=== PATIENT | female | born 1985 | race African-American/Black ===

== ENCOUNTER 2017-05-25 13:16 | Emergency (ER) | payer OTHER ==
[~2017-05-25] VITALS: Ht 180.3 cm; Wt 175.1 kg
[~2017-05-25 13:16] MED LIST: ALKA-SELTZER P1 EAC8 PO; APAP500; FLEXERIL PO; NOHOMEMEDICATIONS; NORCO 5-325 TA1 EACH PO; NYQUIL D COLD295 ML; ONDANSETRON HCL4 M2 PO; PHENERGAN50 MG RC; TUSSIONEX PENN473 ML PO; VENTOLIN HFA 1818 GM INH; ZOFRAN ODT4 MG PO; ZPAK PO
[2017-05-25] MEDS ORDERED: HYDROCODON-ACE1 EAC7 PO (14:12)
[2017-05-25] MEDS ORDERED: PERCOCET PO (14:13)
[2017-05-25] MEDS ORDERED: ALEVE220 M1 PO (14:13)
[2017-05-25 14:19] LABS: ABSOLUTE NEUTROPHILS 7.7 thou/uL (1.4-8.2); BASOPHILS 0.3 % (0.0-2.0); EOSINOPHILS 1.8 % (0.0-3.0); HEMATOCRIT 36.5 % (37.0-47.0); HEMOGLOBIN 11.9 gm/dL (12.0-15.0); MANUAL DIFF NO; MCH 27.5 pg (26.0-34.0); MCHC 32.7 g/dL (28.0-37.0); MCV 84.1 fL (80.0-100.0); MONOCYTES 5.7 % (1.0-8.0); PLATELET COUNT 337 thou/uL (150-400); POLYS 71.2 % (36.0-66.0); RBC 4.33 mil/uL (4.20-5.00); RDW 15.9 % (10.5-14.5); WBC 10.8 thou/uL (4.0-11.0)
[2017-05-25 14:22] LABS: CALCIUM 8.9 mg/dL (8.5-10.1); CREATININE 0.7 mg/dL (0.6-1.0); POTASSIUM 3.8 mmol/L (3.5-5.1)
[2017-05-25 14:28] LABS: ALBUMIN 3.3 g/dL (3.4-5.0); TOTAL BILIRUBIN 0.4 mg/dL (<0.1-1.0); TOTAL PROTEIN 7.6 g/dL (6.4-8.2)
[2017-05-25 16:01] LABS: URINE BILIRUBIN NEGATIVE (Negative); URINE BLOOD 3+ (Negative); URINE COLOR YELLOW; URINE GLUCOSE-RANDOM* NEGATIVE (Negative); URINE KETONES NEGATIVE (Negative); URINE LEUKOCYTES-REFLEX NEGATIVE (Negative); URINE PROTEIN (DIPSTICK) NEGATIVE (Negative); URINE SPECIFIC GRAVITY >= 1.030 (1.003-1.035); URINE UROBILINOGEN 0.2 E.U./dl (0.2-1.0)
[2017-05-25 16:15] LABS: SQUAMOUS 0-3 Few /LPF (0-3)
[2017-05-25 16:16] LABS: CASTS None Seen /LPF (None Seen); CRYSTALS None Seen /LPF (None Seen); URINE WBC-REFLEX 0-5 Rare /HPF (0-5)
[2017-05-25] MEDS ORDERED: ZOFRAN ODT4 M1 PO (16:23)
[2017-05-25 16:57] VITALS: BP 122/68
== END 2017-05-25 16:58 | disposition home or self-care (01) ==
LOC: ER 13:16
PROVIDERS: Physician Assistant
DX: O03.9 Complete or unspecified spontaneous abortion without complication (principal); F17.210 Nicotine dependence, cigarettes, uncomplicated; F10.99 Alcohol use, unspecified with unspecified alcohol-induced disorder; Z87.19 Personal history of other diseases of the digestive system; Z98.890 Other specified postprocedural states; Z88.1 Allergy status to other antibiotic agents; Z88.6 Allergy status to analgesic agent

== ENCOUNTER 2017-10-07 20:12 | Emergency (ER) | payer OTHER ==
[~2017-10-07] VITALS: Ht 180.3 cm; Wt 172.8 kg
[~2017-10-07 20:12] MED LIST changes: +ALEVE220 M1 PO; +HYDROCODON-ACE1 EAC7 PO; +PERCOCET PO; +ZOFRAN ODT4 M1 PO
[2017-10-07] MEDS ORDERED: TYLENOL325 MG PO (20:23)
[2017-10-07] MEDS ORDERED: ALEVE220 MG PO (20:24)
[2017-10-07 21:19] LABS: ABSOLUTE NEUTROPHILS 6.2 thou/uL (1.4-8.2); BASOPHILS 0.4 % (0.0-2.0); EOSINOPHILS 3.1 % (0.0-3.0); HEMATOCRIT 36.8 % (37.0-47.0); HEMOGLOBIN 12.2 gm/dL (12.0-15.0); LYMPHOCYTES 21.4 % (24.0-44.0); MCH 28.1 pg (26.0-34.0); MCHC 33.1 g/dL (28.0-37.0); MCV 84.8 fL (80.0-100.0); MONOCYTES 6.3 % (1.0-8.0); PLATELET COUNT 287 thou/uL (150-400); POLYS 68.8 % (36.0-66.0); RBC 4.34 mil/uL (4.20-5.00); RDW 15.5 % (10.5-14.5); WBC 9.1 thou/uL (4.0-11.0)
[2017-10-07 21:33] LABS: CALCIUM 8.6 mg/dL (8.5-10.1); POTASSIUM 3.6 mmol/L (3.5-5.1)
[2017-10-07 21:38] LABS: ALBUMIN 3.1 g/dL (3.4-5.0); TOTAL BILIRUBIN 0.2 mg/dL (<0.1-1.0); TOTAL PROTEIN 7.4 g/dL (6.4-8.2)
[2017-10-07] MEDS ORDERED: TRAMADOL 50 MG50 MG PO (22:43)
[2017-10-07] MEDS ORDERED: NORFLEX100 MG PO (22:43)
[2017-10-07 22:45] VITALS: BP 157/91
== END 2017-10-07 22:55 | disposition home or self-care (01) ==
LOC: ER 20:12
PROVIDERS: Nurse Practitioner Family
DX: M43.6 Torticollis (principal); J06.9 Acute upper respiratory infection, unspecified; Z88.1 Allergy status to other antibiotic agents; Z88.6 Allergy status to analgesic agent

== ENCOUNTER 2017-11-02 09:11 | Emergency (ER) | payer OTHER ==
[~2017-11-02] VITALS: Ht 180.3 cm; Wt 172.8 kg
[~2017-11-02 09:11] MED LIST changes: +ALEVE220 MG PO; +NORFLEX100 MG PO; +TRAMADOL 50 MG50 MG PO; +TYLENOL325 MG PO
[2017-11-02 09:23] VITALS: BP 153/103
[2017-11-02] MEDS ORDERED: HYDROCODONE-AP1 EAC6 PO (09:31)
[2017-11-02] MEDS ORDERED: FLEXERIL PO (09:31)
== END 2017-11-02 10:38 | disposition home or self-care (01) ==
LOC: ER 09:11
DX: M43.6 Torticollis (principal); M54.2 Cervicalgia; F17.210 Nicotine dependence, cigarettes, uncomplicated; Z88.1 Allergy status to other antibiotic agents; Z88.6 Allergy status to analgesic agent

== ENCOUNTER 2018-04-29 00:42 | Emergency (ER) | payer OTHER ==
[~2018-04-29] VITALS: Ht 180.3 cm; Wt 190.5 kg
[~2018-04-29 00:42] MED LIST changes: +HYDROCODONE-AP1 EAC6 PO
[2018-04-29] MEDS ORDERED: NAPROSYN500 MG PO (02:22)
[2018-04-29] MEDS ORDERED: CLEOCIN HCL150 MG PO (02:22)
[2018-04-29] MEDS ORDERED: ZYRTEC10 M5 PO (08:14)
[2018-04-29] MEDS ORDERED: ZOFRAN ODT4 MG PO (08:30)
== END 2018-04-29 02:45 | disposition home or self-care (01) ==
LOC: ER 00:42
DX: K02.9 Dental caries, unspecified (principal); F17.210 Nicotine dependence, cigarettes, uncomplicated; Z88.1 Allergy status to other antibiotic agents; Z88.6 Allergy status to analgesic agent; Z98.890 Other specified postprocedural states

== ENCOUNTER 2018-04-29 07:35 | Emergency (ER) | payer OTHER ==
[~2018-04-29] VITALS: Ht 180.3 cm; Wt 188.7 kg
[~2018-04-29 07:35] MED LIST changes: +CLEOCIN HCL150 MG PO; +NAPROSYN500 MG PO
[2018-04-29] MEDS ORDERED: ZYRTEC10 M5 PO (08:14)
[2018-04-29] MEDS ORDERED: ZOFRAN ODT4 MG PO (08:30)
== END 2018-04-29 08:59 | disposition home or self-care (01) ==
LOC: ER 07:35
DX: K02.9 Dental caries, unspecified (principal); T36.0X5A Adverse effect of penicillins, initial encounter; F17.210 Nicotine dependence, cigarettes, uncomplicated; Z98.890 Other specified postprocedural states; Z88.1 Allergy status to other antibiotic agents; Z88.6 Allergy status to analgesic agent; Y92.89 Other specified places as the place of occurrence of the external cause

== ENCOUNTER 2018-06-07 00:09 | Emergency (ER) | payer OTHER ==
[~2018-06-07] VITALS: Ht 180.3 cm; Wt 190.5 kg
--- NOTE | ~2018-06-07 | EKG ---
[place] [address] [facility] [place] [address] ELECTROCARDIOGRAM REPORT Name: MARCELA ESTRELLA Room #: DEP Jordana#: [id number] Admission: 06/07/18 Attend Phys: Discharge: 06/07/18 Date of : 89 Report #: [id number] THIS REPORT FOR: //name// [facility] ED Test Date: 2018-06-07 Test Time: 01:20:22 Pat Name: MARCELA ESTRELLA Department: Room: Gender: F Communication Clerk: rashad : 1985 Requested By: Escobar Don Order Number: [id number] MD: Kurt Snyder Measurements Intervals [place] Rate: 85 P: 50 VT: 146 QRS: 19 QRSD: 83 T: 19 QT: 365 QTc: 434 Interpretive Statements Sinus rhythm Baseline wander in lead(s) II,III,aVF No previous ECG available for comparison Electronically Signed On 06-07-2018 8:20:09 COPY LATHE TENDER by Kurt Snyder [email or web address] <ELECTRONICALLY SIGNED> By: Kurt Snyder MD 06/07/18 0820 0120 0120 Kurt Snyder MD /BENITO
[~2018-06-07 00:09] MED LIST changes: +ZYRTEC10 M5 PO
[2018-06-07 00:51] LABS: URINE BILIRUBIN 1+ (Negative); URINE BLOOD NEGATIVE (Negative); URINE CLARITY CLEAR; URINE COLOR YELLOW; URINE GLUCOSE-RANDOM* NEGATIVE (Negative); URINE KETONES NEGATIVE (Negative); URINE LEUKOCYTES-REFLEX NEGATIVE (Negative); URINE NITRITE-REFLEX NEGATIVE (Negative); URINE PROTEIN (DIPSTICK) NEGATIVE (Negative); URINE SPECIFIC GRAVITY >= 1.030 (1.005-1.035); URINE UROBILINOGEN 0.2 E.U./dl (0.2-1.0)
[2018-06-07 00:55] LABS: CASTS None Seen /LPF (None Seen); CRYSTALS None Seen /LPF (None Seen); ICTOTEST (BILI CONFIRMATORY) Positive (Negative); MUCUS 4-6 Moderate strn/LPF (None Seen); SQUAMOUS >10 Many /LPF (0-3); URINE RBC None Seen /HPF (0-2); URINE WBC-REFLEX 0-5 Rare /HPF (0-5)
[2018-06-07 01:06] LABS: ABSOLUTE NEUTROPHILS 7.8 thou/uL (1.4-8.2); BASOPHILS 0.4 % (0.0-2.0); EOSINOPHILS 2.9 % (0.0-3.0); HEMOGLOBIN 13.6 gm/dL (12.0-15.0); LYMPHOCYTES 17.5 % (24.0-44.0); MCH 28.9 pg (26.0-34.0); MCHC 33.3 g/dL (28.0-37.0); MCV 86.9 fL (80.0-100.0); MONOCYTES 5.8 % (1.0-8.0); PLATELET COUNT 299 thou/uL (150-400); POLYS 73.4 % (36.0-66.0); RBC 4.72 mil/uL (4.20-5.00); WBC 10.6 thou/uL (4.0-11.0)
[2018-06-07 01:16] LABS: ANION GAP 9 mmol/L (7-16); BUN 11 mg/dL (7-18); CALCIUM 9.1 mg/dL (8.5-10.1); CHLORIDE 104 mmol/L (98-107); CO2 25 mmol/L (21-32); CREATININE 0.9 mg/dL (0.6-1.0); GLUCOSE 108 mg/dL (74-106); SODIUM 138 mmol/L (136-145)
[2018-06-07 01:24] LABS: ALBUMIN 3.5 g/dL (3.4-5.0); LIPASE 112 U/L (73-393); SGOT 27 U/L (15-37); SGPT 22 U/L (30-65); TOTAL BILIRUBIN 0.7 mg/dL (<0.1-1.0); TOTAL PROTEIN 8.4 g/dL (6.4-8.2); TROPONIN-I <0.06 ng/mL (<0.06)
[2018-06-07] MEDS ORDERED: PRILOSEC 20 MG20 MG PO (03:46)
[2018-06-07] MEDS ORDERED: ZOFRAN8 MG PO (03:46)
[2018-06-07] MEDS ORDERED: TRAMADOL 50 MG50 MG PO (03:46)
[2018-06-07 04:33] VITALS: BP 137/86
== END 2018-06-07 04:36 | disposition home or self-care (01) ==
LOC: ER 00:09
PROVIDERS: Emergency Medicine
DX: K80.20 Calculus of gallbladder without cholecystitis without obstruction (principal); E66.01 Morbid (severe) obesity due to excess calories; Z68.43 Body mass index [BMI] 50.0-59.9, adult; R11.2 Nausea with vomiting, unspecified

== ENCOUNTER 2018-07-14 17:28 | Emergency (ER) | payer OTHER ==
[~2018-07-14] VITALS: Ht 180.3 cm; Wt 190.5 kg
[~2018-07-14 17:28] MED LIST changes: +PRILOSEC 20 MG20 MG PO; +ZOFRAN8 MG PO
[2018-07-14 17:58] LABS: URINE BILIRUBIN NEGATIVE (Negative); URINE BLOOD TRACE (Negative); URINE CLARITY CLEAR; URINE COLOR YELLOW; URINE GLUCOSE-RANDOM* NEGATIVE (Negative); URINE KETONES NEGATIVE (Negative); URINE NITRITE-REFLEX NEGATIVE (Negative); URINE PROTEIN (DIPSTICK) NEGATIVE (Negative); URINE SPECIFIC GRAVITY > 1.030 (1.005-1.035)
[2018-07-14 17:59] LABS: URINE LEUKOCYTES-REFLEX NEGATIVE (Negative); URINE UROBILINOGEN 0.2 E.U./dl (0.2-1.0)
[2018-07-14 19:24] LABS: ABSOLUTE NEUTROPHILS 8.7 thou/uL (1.4-8.2); BASOPHILS 0.7 % (0.0-2.0); EOSINOPHILS 1.8 % (0.0-3.0); HEMATOCRIT 41.5 % (37.0-47.0); LYMPHOCYTES 23.8 % (24.0-44.0); MCH 29.4 pg (26.0-34.0); MCHC 33.6 g/dL (28.0-37.0); MCV 87.4 fL (80.0-100.0); MONOCYTES 5.3 % (1.0-8.0); PLATELET COUNT 323 thou/uL (150-400); POLYS 68.4 % (36.0-66.0); RBC 4.75 mil/uL (4.20-5.00); WBC 12.8 thou/uL (4.0-11.0)
[2018-07-14 19:34] LABS: CALCIUM 9.6 mg/dL (8.5-10.1); CREATININE 0.9 mg/dL (0.6-1.0); POTASSIUM 4.4 mmol/L (3.5-5.1)
[2018-07-14 19:38] LABS: ALBUMIN 3.5 g/dL (3.4-5.0); TOTAL BILIRUBIN 0.3 mg/dL (<0.1-1.0); TOTAL PROTEIN 8.5 g/dL (6.4-8.2)
[2018-07-14] MEDS ORDERED: NORFLEX100 MG PO (20:43)
[2018-07-14 20:54] VITALS: BP 136/76
== END 2018-07-14 21:00 | disposition home or self-care (01) ==
LOC: ER 17:28
PROVIDERS: Physician Assistant
DX: M54.5 Low back pain (principal); R31.29 Other microscopic hematuria; F17.210 Nicotine dependence, cigarettes, uncomplicated; Z88.1 Allergy status to other antibiotic agents; Z88.6 Allergy status to analgesic agent; Z98.890 Other specified postprocedural states

== ENCOUNTER 2018-09-19 00:13 | Emergency (ER) | payer OTHER ==
[~2018-09-19] VITALS: Ht 180.3 cm; Wt 199.1 kg
[2018-09-19 01:51] LABS: ABSOLUTE NEUTROPHILS 8.8 thou/uL (1.4-8.2); BASOPHILS 0.5 % (0.0-2.0); EOSINOPHILS 2.3 % (0.0-3.0); HEMATOCRIT 39.1 % (37.0-47.0); LYMPHOCYTES 17.3 % (24.0-44.0); MCH 28.5 pg (26.0-34.0); MCHC 33.2 g/dL (28.0-37.0); MCV 86.1 fL (80.0-100.0); MONOCYTES 6.6 % (1.0-8.0); PLATELET COUNT 326 thou/uL (150-400); POLYS 73.3 % (36.0-66.0); RBC 4.55 mil/uL (4.20-5.00); RDW 15.1 % (10.5-14.5)
[2018-09-19] MEDS ORDERED: CLARITIN10 MG PO (02:44)
[2018-09-19] MEDS ORDERED: TORADOL 10 MG T10 MG PO (03:13)
[2018-09-19] MEDS ORDERED: GUAIFEN-CODEINE10 ML PO (03:13)
[2018-09-19] MEDS ORDERED: VENTOLIN HFA 1818 GM INH (03:13)
[2018-09-19 03:25] VITALS: BP 130/31
== END 2018-09-19 03:30 | disposition home or self-care (01) ==
LOC: ER 00:13
PROVIDERS: Emergency Medicine
DX: J06.9 Acute upper respiratory infection, unspecified (principal); B34.9 Viral infection, unspecified; F17.210 Nicotine dependence, cigarettes, uncomplicated; Z88.1 Allergy status to other antibiotic agents; Z88.6 Allergy status to analgesic agent

== ENCOUNTER 2019-02-20 18:58 | Emergency (ER) | payer OTHER ==
[~2019-02-20] VITALS: Ht 180.3 cm; Wt 187.8 kg
[~2019-02-20 18:58] MED LIST changes: +CLARITIN10 MG PO; +GUAIFEN-CODEINE10 ML PO; +TORADOL 10 MG T10 MG PO
[2019-02-20 19:30] LABS: URINE BILIRUBIN NEGATIVE (Negative); URINE BLOOD TRACE (Negative); URINE CLARITY CLEAR; URINE COLOR YELLOW; URINE GLUCOSE-RANDOM* NEGATIVE (Negative); URINE KETONES NEGATIVE (Negative); URINE LEUKOCYTES-REFLEX NEGATIVE (Negative); URINE NITRITE-REFLEX NEGATIVE (Negative); URINE PROTEIN (DIPSTICK) NEGATIVE (Negative); URINE SPECIFIC GRAVITY 1.025 (1.005-1.035); URINE UROBILINOGEN 0.2 E.U./dl (0.2-1.0)
[2019-02-20 20:58] LABS: HEMATOCRIT 40.6 % (37.0-47.0); HEMOGLOBIN 13.3 gm/dL (12.0-15.0); MCH 28.6 pg (26.0-34.0); MCHC 32.8 g/dL (28.0-37.0); MCV 87.2 fL (80.0-100.0); RBC 4.66 mil/uL (4.20-5.00); RDW 15.5 % (10.5-14.5); WBC 10.7 thou/uL (4.0-11.0)
[2019-02-20 21:05] LABS: CREATININE 0.9 mg/dL (0.6-1.0); POTASSIUM 4.1 mmol/L (3.5-5.1)
[2019-02-20] MEDS ORDERED: LIDOCAINE PAIN1 EACH TOP (21:17)
[2019-02-20] MEDS ORDERED: TRAMADOL 50 MG50 MG PO (21:17)
[2019-02-20 21:26] VITALS: BP 148/76
== END 2019-02-20 21:37 | disposition home or self-care (01) ==
LOC: ER 18:58
PROVIDERS: Physician Assistant
DX: R10.32 Left lower quadrant pain (principal); R30.0 Dysuria; F17.210 Nicotine dependence, cigarettes, uncomplicated; Z88.1 Allergy status to other antibiotic agents; Z88.6 Allergy status to analgesic agent; Z98.890 Other specified postprocedural states

== ENCOUNTER 2019-04-16 19:35 | Emergency (ER) | payer OTHER ==
[~2019-04-16] VITALS: Ht 180.3 cm; Wt 188.7 kg
[~2019-04-16 19:35] MED LIST changes: +LIDOCAINE PAIN1 EACH TOP
[2019-04-16 20:26] LABS: URINE BILIRUBIN NEGATIVE (Negative); URINE BLOOD NEGATIVE (Negative); URINE CLARITY CLEAR; URINE COLOR YELLOW; URINE GLUCOSE-RANDOM* NEGATIVE (Negative); URINE KETONES NEGATIVE (Negative); URINE LEUKOCYTES-REFLEX NEGATIVE (Negative); URINE NITRITE-REFLEX NEGATIVE (Negative); URINE PROTEIN (DIPSTICK) NEGATIVE (Negative); URINE SPECIFIC GRAVITY 1.025 (1.005-1.035); URINE UROBILINOGEN 0.2 E.U./dl (0.2-1.0)
[2019-04-16 22:24] LABS: ABSOLUTE NEUTROPHILS 14.5 thou/uL (1.4-8.2); BASOPHILS 0.6 % (0.0-2.0); EOSINOPHILS 0.7 % (0.0-3.0); HEMATOCRIT 40.3 % (37.0-47.0); HEMOGLOBIN 13.2 gm/dL (12.0-15.0); LYMPHOCYTES 14.3 % (24.0-44.0); MCHC 32.7 g/dL (28.0-37.0); MCV 88.6 fL (80.0-100.0); MONOCYTES 3.8 % (1.0-8.0); PLATELET COUNT 350 thou/uL (150-400); POLYS 80.6 % (36.0-66.0); RBC 4.55 mil/uL (4.20-5.00); RDW 15.3 % (10.5-14.5); WBC 17.9 thou/uL (4.0-11.0)
[2019-04-16 22:38] LABS: CALCIUM 9.3 mg/dL (8.5-10.1); CREATININE 0.8 mg/dL (0.6-1.0); POTASSIUM 4.4 mmol/L (3.5-5.1)
[2019-04-16 22:43] LABS: ALBUMIN 3.6 g/dL (3.4-5.0); TOTAL BILIRUBIN 0.4 mg/dL (<0.1-1.0); TOTAL PROTEIN 8.4 g/dL (6.4-8.2)
[2019-04-17] MEDS ORDERED: BACTRIM DS TAB1 EACH PO (01:31)
[2019-04-17 02:02] VITALS: BP 139/71
== END 2019-04-17 02:02 | disposition home or self-care (01) ==
LOC: ER 19:35
PROVIDERS: Physician Assistant
DX: R10.31 Right lower quadrant pain (principal); R11.2 Nausea with vomiting, unspecified; R35.0 Frequency of micturition; F17.210 Nicotine dependence, cigarettes, uncomplicated; Z98.890 Other specified postprocedural states; Z88.1 Allergy status to other antibiotic agents; Z88.6 Allergy status to analgesic agent

== ENCOUNTER 2019-10-15 13:40 | Emergency (ER) | payer OTHER ==
[~2019-10-15] VITALS: Ht 180.3 cm; Wt 198.2 kg
[~2019-10-15 13:40] MED LIST changes: +BACTRIM DS TAB1 EACH PO
[2019-10-15] MEDS ORDERED: SUPER THERAVIT1 EACH PO (13:56)
[2019-10-15 14:38] LABS: ABSOLUTE NEUTROPHILS 6.4 thou/uL (1.4-8.2); BASOPHILS 0.8 % (0.0-2.0); EOSINOPHILS 3.1 % (0.0-3.0); HEMATOCRIT 39.1 % (37.0-47.0); HEMOGLOBIN 12.9 gm/dL (12.0-15.0); LYMPHOCYTES 30.7 % (24.0-44.0); MCH 28.9 pg (26.0-34.0); MCHC 33.1 g/dL (28.0-37.0); MCV 87.4 fL (80.0-100.0); PLATELET COUNT 306 thou/uL (150-400); POLYS 60.4 % (36.0-66.0); RBC 4.47 mil/uL (4.20-5.00); RDW 14.8 % (10.5-14.5); WBC 10.6 thou/uL (4.0-11.0)
[2019-10-15 14:48] LABS: ANION GAP 6 mmol/L (7-16); BUN 15 mg/dL (7-18); CALCIUM 8.9 mg/dL (8.5-10.1); CHLORIDE 101 mmol/L (98-107); CO2 29 mmol/L (21-32); CREATININE 0.8 mg/dL (0.6-1.0); GLUCOSE 86 mg/dL (74-106); POTASSIUM 4.2 mmol/L (3.5-5.1); SODIUM 136 mmol/L (136-145)
[2019-10-15 14:58] LABS: ALBUMIN 3.6 g/dL (3.4-5.0); SGOT 21 U/L (15-37); SGPT 22 U/L (30-65); TOTAL BILIRUBIN 0.4 mg/dL (<0.1-1.0); TOTAL PROTEIN 8.1 g/dL (6.4-8.2); TROPONIN-I <0.06 ng/mL (<0.06)
--- NOTE | 2019-10-15 15:23 | EKG ---
[facility] [place] [address] ELECTROCARDIOGRAM REPORT Name: MARCELA ESTRELLA Room #: REG [facility]#: [id number] Admission: 10/15/19 Attend Phys: Discharge: Date of : [birth year] Report #: [id number] THIS REPORT FOR: cc: [facility] - Clinic physician unknown [facility] - Clinic physician unknown Andriy Singh MD ~ THIS REPORT FOR: //name// [facility] ED Test Date: 2019-10-15 Test Time: 13:48:20 Pat Name: MARCELA ESTRELLA Department: Room: Gender: Tomographic Tech: : 1985 Requested By: Tee Hobson Order Number: [id number] MD: Andriy Singh Measurements Intervals [place] Rate: 81 P: 32 HI: 152 QRS: 8 QRSD: 89 T: 16 QT: 387 QTc: 450 Interpretive Statements Sinus rhythm Compared to ECG 06/07/2018 01:20:22 No significant changes Electronically Signed On 10-15-2019 15:21:35 CDT by Andriy Singh [email or web address] <ELECTRONICALLY SIGNED> By: Andriy Singh MD 10/15/19 1521 47 47 Andriy Singh MD /BENITO
[2019-10-15] MEDS ORDERED: ELIQUIS5 M1 PO (17:05)
[2019-10-15] MEDS ORDERED: NORCO 5-325 TA1 EAC1 PO (17:09)
[2019-10-15 17:19] VITALS: BP 129/78
== END 2019-10-15 17:19 | disposition home or self-care (01) ==
LOC: ER 13:40
PROVIDERS: Physician Assistant
DX: I82.412 Acute embolism and thrombosis of left femoral vein (principal); R42 Dizziness and giddiness; R07.9 Chest pain, unspecified; R20.0 Anesthesia of skin; F17.210 Nicotine dependence, cigarettes, uncomplicated; Z79.899 Other long term (current) drug therapy; Z88.1 Allergy status to other antibiotic agents; Z88.6 Allergy status to analgesic agent; Z91.013 Allergy to seafood

== ENCOUNTER 2019-11-19 17:53 | Emergency (ER) | payer OTHER ==
[~2019-11-19] VITALS: Ht 180.3 cm; Wt 192.3 kg
[~2019-11-19 17:53] MED LIST changes: +ELIQUIS5 M1 PO; +NORCO 5-325 TA1 EAC1 PO; +SUPER THERAVIT1 EACH PO
[2019-11-19] MEDS ORDERED: LISINOPRIL-HCT1 EACH PO (18:12)
[2019-11-19] MEDS ORDERED: ACETAMINOPHEN500 M1 PO (18:12)
[2019-11-19] MEDS ORDERED: COUMADIN 5 MG TA5 M1 PO (18:12)
[2019-11-19 18:26] LABS: URINE BILIRUBIN NEGATIVE (Negative); URINE BLOOD NEGATIVE (Negative); URINE CLARITY CLEAR; URINE COLOR YELLOW; URINE GLUCOSE-RANDOM* NEGATIVE (Negative); URINE KETONES NEGATIVE (Negative); URINE LEUKOCYTES-REFLEX NEGATIVE (Negative); URINE NITRITE-REFLEX NEGATIVE (Negative); URINE PROTEIN (DIPSTICK) TRACE (Negative); URINE SPECIFIC GRAVITY 1.025 (1.005-1.035); URINE UROBILINOGEN 0.2 E.U./dl (0.2-1.0)
[2019-11-19 18:58] LABS: ABSOLUTE NEUTROPHILS 5.4 thou/uL (1.4-8.2); BASOPHILS 0.6 % (0.0-2.0); HEMATOCRIT 41.6 % (37.0-47.0); HEMOGLOBIN 13.7 gm/dL (12.0-15.0); LYMPHOCYTES 29.3 % (24.0-44.0); MCH 28.9 pg (26.0-34.0); MCHC 32.9 g/dL (28.0-37.0); MCV 87.9 fL (80.0-100.0); MONOCYTES 4.8 % (1.0-8.0); PLATELET COUNT 354 thou/uL (150-400); POLYS 62.3 % (36.0-66.0); RBC 4.73 mil/uL (4.20-5.00); RDW 14.9 % (10.5-14.5); WBC 8.6 thou/uL (4.0-11.0)
[2019-11-19 19:19] LABS: CREATININE 1.1 mg/dL (0.6-1.0); POTASSIUM 4.1 mmol/L (3.5-5.1)
[2019-11-19 19:25] LABS: ALBUMIN 3.8 g/dL (3.4-5.0); TOTAL BILIRUBIN 0.3 mg/dL (<0.1-1.0)
[2019-11-19 20:02] LABS: INR 1.2; PROTIME 12.2 Seconds (9.3-11.4)
[2019-11-19] MEDS ORDERED: FLAGYL500 M1 PO (23:04)
[2019-11-19 23:24] VITALS: BP 134/75
== END 2019-11-19 23:26 | disposition home or self-care (01) ==
LOC: ER 17:53
PROVIDERS: Emergency Medicine
DX: R10.13 Epigastric pain (principal); R10.30 Lower abdominal pain, unspecified; R42 Dizziness and giddiness; R30.9 Painful micturition, unspecified; F17.210 Nicotine dependence, cigarettes, uncomplicated; Z98.890 Other specified postprocedural states; Z79.899 Other long term (current) drug therapy; Z79.01 Long term (current) use of anticoagulants; Z88.1 Allergy status to other antibiotic agents; Z88.6 Allergy status to analgesic agent; Z91.013 Allergy to seafood

== ENCOUNTER 2020-06-24 15:08 | Emergency (ER) | payer OTHER ==
[~2020-06-24] VITALS: Ht 180.3 cm; Wt 190.5 kg
[~2020-06-24 15:08] MED LIST changes: +ACETAMINOPHEN500 M1 PO; +COUMADIN 5 MG TA5 M1 PO; +FLAGYL500 M1 PO; +LISINOPRIL-HCT1 EACH PO
[2020-06-24 15:42] LABS: URINE BILIRUBIN NEGATIVE (Negative); URINE BLOOD 1+ (Negative); URINE CLARITY CLEAR; URINE GLUCOSE-RANDOM* NEGATIVE (Negative); URINE KETONES NEGATIVE (Negative); URINE LEUKOCYTES-REFLEX NEGATIVE (Negative); URINE PROTEIN (DIPSTICK) NEGATIVE (Negative); URINE SPECIFIC GRAVITY 1.025 (1.005-1.035)
[2020-06-24 15:48] LABS: URINE NITRITE-REFLEX POSITIVE (Negative)
[2020-06-24 15:50] LABS: URINE COLOR ORANGE
[2020-06-24 16:22] LABS: CASTS None Seen /LPF (None Seen); MUCUS 4-6 Moderate strn/LPF (None Seen); SQUAMOUS 4-10 Moderate /LPF (0-3)
[2020-06-24 16:23] LABS: BACTERIA-REFLEX 1-9 Few /HPF (None Seen); CRYSTALS None Seen /LPF (None Seen); URINE RBC 0-2 Rare /HPF (0-2); URINE WBC-REFLEX 0-5 Rare /HPF (0-5)
[2020-06-24 16:30] LABS: ABSOLUTE NEUTROPHILS 8.6 thou/uL (1.4-8.2); BASOPHILS 0.6 % (0.0-2.0); HEMOGLOBIN 12.3 gm/dL (12.0-15.0); LYMPHOCYTES 25.3 % (24.0-44.0); MCH 27.4 pg (26.0-34.0); MCHC 32.3 g/dL (28.0-37.0); MCV 84.6 fL (80.0-100.0); MONOCYTES 6.3 % (1.0-8.0); PLATELET COUNT 366 thou/uL (150-400); POLYS 65.8 % (36.0-66.0); RBC 4.49 mil/uL (4.20-5.00); RDW 15.7 % (10.5-14.5); WBC 13.1 thou/uL (4.0-11.0)
[2020-06-24 16:52] LABS: CALCIUM 9.3 mg/dL (8.5-10.1); POTASSIUM 3.7 mmol/L (3.5-5.1)
[2020-06-24 16:58] LABS: ALBUMIN 3.3 g/dL (3.4-5.0); TOTAL BILIRUBIN 0.6 mg/dL (0.2-1.0); TOTAL PROTEIN 8.2 g/dL (6.4-8.2)
[2020-06-24] MEDS ORDERED: PHENAZOPYRIDIN200 M2 PO (17:55)
[2020-06-24] MEDS ORDERED: BACTRIM DS TAB1 EACH PO (17:55)
[2020-06-24 18:00] VITALS: BP 112/50
== END 2020-06-24 18:00 | disposition home or self-care (01) ==
LOC: ER 15:08
PROVIDERS: Physician Assistant
DX: N39.0 Urinary tract infection, site not specified (principal); R10.9 Unspecified abdominal pain; F17.210 Nicotine dependence, cigarettes, uncomplicated; Z79.899 Other long term (current) drug therapy; Z79.01 Long term (current) use of anticoagulants; Z88.1 Allergy status to other antibiotic agents; Z91.013 Allergy to seafood; Z88.8 Allergy status to other drugs, medicaments and biological substances

== ENCOUNTER 2021-01-14 22:57 | Emergency (ER) | payer OTHER ==
[~2021-01-14] VITALS: Ht 180.3 cm; Wt 184.6 kg
[~2021-01-14 22:57] MED LIST changes: +PHENAZOPYRIDIN200 M2 PO
[2021-01-14] MEDS ORDERED: TRAMADOL-ACETA1 EACH PO (23:08)
[2021-01-14] MEDS ORDERED: FLONASE 0.05%50 MCG NARES (23:08)
[2021-01-14] MEDS ORDERED: CHILDREN'S ZYRT10 M1 PO (23:09)
[2021-01-14] MEDS ORDERED: GLIPIZIDE 10 MG10 MG PO (23:10)
[2021-01-15 00:08] LABS: ABSOLUTE NEUTROPHILS 7.9 thou/uL (1.4-8.2); BASOPHILS 0.4 % (0.0-2.0); EOSINOPHILS 3.2 % (0.0-3.0); HEMATOCRIT 36.7 % (37.0-47.0); HEMOGLOBIN 12.3 gm/dL (12.0-15.0); LYMPHOCYTES 26.9 % (24.0-44.0); MCH 28.4 pg (26.0-34.0); MCHC 33.5 g/dL (28.0-37.0); MCV 84.7 fL (80.0-100.0); MONOCYTES 6.2 % (1.0-8.0); PLATELET COUNT 319 thou/uL (150-400); POLYS 63.3 % (36.0-66.0); RBC 4.33 mil/uL (4.20-5.00); RDW 16.4 % (10.5-14.5); WBC 12.5 thou/uL (4.0-11.0)
[2021-01-15 00:12] LABS: CALCIUM 9.1 mg/dL (8.5-10.1); CREATININE 1.1 mg/dL (0.6-1.0); POTASSIUM 4.3 mmol/L (3.5-5.1)
[2021-01-15 00:37] LABS: APTT 22.2 Seconds (24.5-32.8); INR 0.93; PROTIME 10.2 Seconds (10.5-12.1)
[2021-01-15 01:38] LABS: URINE BILIRUBIN NEGATIVE (Negative); URINE BLOOD NEGATIVE (Negative); URINE CLARITY CLEAR; URINE COLOR YELLOW; URINE GLUCOSE-RANDOM* NEGATIVE (Negative); URINE KETONES NEGATIVE (Negative); URINE LEUKOCYTES-REFLEX NEGATIVE (Negative); URINE NITRITE-REFLEX NEGATIVE (Negative); URINE PROTEIN (DIPSTICK) NEGATIVE (Negative); URINE UROBILINOGEN 0.2 E.U./dl (0.2-1.0)
[2021-01-15 02:20] LABS: ALBUMIN 3.4 g/dL (3.4-5.0); DIRECT BILIRUBIN < 0.1 mg/dL (<0.1-0.2); LIPASE 101 U/L (73-393); SGOT 13 U/L (15-37); SGPT 18 U/L (14-59); TOTAL BILIRUBIN 0.2 mg/dL (0.2-1.0)
[2021-01-15] MEDS ORDERED: ZOFRAN ODT4 MG PO (04:41)
[2021-01-15 04:56] VITALS: BP 145/65
--- NOTE | 2021-01-16 09:38 | EKG ---
[place] [address] [facility] [place] [address] ELECTROCARDIOGRAM REPORT Name: MARCELA ESTRELLA [id number] Admission: 01/14/21 Attend Phys: Discharge: 01/15/21 Date of : [birth year] Report #: [id number] [facility] ED Test Date: 2021-01-14 Test Time: 23:51:01 Pat Name: MARCELA ESTRELLA Department: Room: Gender: F Broadcast Technician: KMOh : 1985 Requested By: Trenton Templeton Order Number: [id number] MD: Venancio Telles Measurements Intervals [place] Rate: 77 P: 22 IN: 150 QRS: 2 QRSD: 84 T: 11 QT: 365 QTc: 414 Interpretive Statements Sinus rhythm Normal tracing Compared to ECG 10/15/2019 13:48:20 No significant changes Electronically Signed On 01-16-2021 9:38:30 CDT by Venancio Telles [email or web address] <ELECTRONICALLY SIGNED> By: Venancio Telles MD, [facility] 01/16/21 0938 2351 [id number] Venancio Telles MD, FACC /EPI
== END 2021-01-15 04:59 | disposition home or self-care (01) ==
LOC: ER 22:57
PROVIDERS: Emergency Medicine
DX: R10.10 Upper abdominal pain, unspecified (principal); R11.10 Vomiting, unspecified; Z98.890 Other specified postprocedural states; Z87.442 Personal history of urinary calculi

== ENCOUNTER 2021-01-15 08:16 | Emergency (ER) | payer OTHER ==
[~2021-01-15] VITALS: Ht 180.3 cm; Wt 184.6 kg
[~2021-01-15 08:16] MED LIST changes: +CHILDREN'S ZYRT10 M1 PO; +FLONASE 0.05%50 MCG NARES; +GLIPIZIDE 10 MG10 MG PO; +TRAMADOL-ACETA1 EACH PO
[2021-01-15 09:15] LABS: ABSOLUTE NEUTROPHILS 6.8 thou/uL (1.4-8.2); BASOPHILS 0.5 % (0.0-2.0); EOSINOPHILS 2.9 % (0.0-3.0); HEMATOCRIT 39.2 % (37.0-47.0); HEMOGLOBIN 12.8 gm/dL (12.0-15.0); LYMPHOCYTES 21.7 % (24.0-44.0); MCHC 32.6 g/dL (28.0-37.0); MCV 85.9 fL (80.0-100.0); MONOCYTES 6.8 % (1.0-8.0); PLATELET COUNT 306 thou/uL (150-400); POLYS 68.1 % (36.0-66.0); RBC 4.57 mil/uL (4.20-5.00); RDW 16.4 % (10.5-14.5)
[2021-01-15 09:22] LABS: CALCIUM 9.2 mg/dL (8.5-10.1); POTASSIUM 4.3 mmol/L (3.5-5.1)
[2021-01-15 09:28] LABS: ALBUMIN 3.4 g/dL (3.4-5.0); TOTAL BILIRUBIN 0.4 mg/dL (0.2-1.0)
[2021-01-15 11:30] VITALS: BP 148/92
== END 2021-01-15 11:30 | disposition home or self-care (01) ==
LOC: ER 08:16
PROVIDERS: Emergency Medicine
DX: R51.9 Headache, unspecified (principal); H53.149 Visual discomfort, unspecified; R11.2 Nausea with vomiting, unspecified; R20.2 Paresthesia of skin; F17.210 Nicotine dependence, cigarettes, uncomplicated; Z98.890 Other specified postprocedural states; Z87.442 Personal history of urinary calculi; Z88.0 Allergy status to penicillin; Z88.1 Allergy status to other antibiotic agents; Z88.6 Allergy status to analgesic agent; Z91.013 Allergy to seafood; Z91.018 Allergy to other foods

== ENCOUNTER 2021-07-07 18:58 | Emergency (ER) | payer OTHER ==
[~2021-07-07] VITALS: Ht 180.3 cm; Wt 189.6 kg
[2021-07-07 19:04] VITALS: BP 149/88
== END 2021-07-07 23:26 | disposition home or self-care (01) ==
LOC: ER 18:58
DX: M79.604 Pain in right leg (principal); F17.210 Nicotine dependence, cigarettes, uncomplicated; Z91.013 Allergy to seafood; Z79.899 Other long term (current) drug therapy